=== PATIENT | female | born 1960 | race Hispanic/Latino ===

== ENCOUNTER 2018-06-15 11:29 | Inpatient (IN) | payer BC ==
[2018-06-15] MEDS ORDERED: Morphine 2 mg/ml ISec IVP ONE ×2 (13:35→15:15)
[2018-06-15 14:16] LABS: INR 1.13; PARTIAL THROMBOPLASTIN TIME 25.8 Seconds (25.1-36.5)
[2018-06-15 14:17] LABS: BASO # 0.02 K/mm3 (0.0-2.0); BASO % 0.2 % (0.0-3.0); GRAN # 7.15 (1.4-6.5); GRAN % 85.1 % (50.0-68.0); HEMOGLOBIN 11.8 g/dL (12.0-16.0); LYMPH # 0.7 (1.2-3.4); LYMPH % 8.8 % (22.0-35.0); MEAN CELL VOLUME 87.8 fl (80.0-105.0); MEAN CORPUSCULAR HEMOGLOBIN 28.9 pg (25.0-35.0); MEAN CORPUSCULAR HGB CONC 32.9 g/dl (31.0-37.0); MEAN PLATELET VOLUME 8.8 fl (7.0-11.0); MONO # 0.5 (0.1-0.6); MONO % 5.9 % (1.0-6.0); RBC 4.09 10^6/uL (3.5-6.1); RED CELL DISTRIBUTION WIDTH 13.2 % (11.5-14.5); WHITE BLOOD COUNT 8.4 10^3/uL (4.5-11.0)
[2018-06-15 14:42] VITALS: BMI 21.9
[2018-06-15 14:42] LABS: BLOOD UREA NITROGEN 10 mg/dL (7-21); GFR NON-AFRICAN AMERICAN > 60
[2018-06-15 14:43] LABS: ALB/GLOB RATIO 1.3 (1.1-1.8); ALBUMIN 4.3 g/dL (3.0-4.8); ALT/SGPT 25 U/L (7-56); AST/SGOT 36 U/L (14-36); CALCIUM 9.4 mg/dL (8.4-10.5)
[2018-06-15] MEDS ORDERED: Sodium Chloride 0.9% 1,000 ML IV STA (16:48)
[2018-06-15] MEDS ORDERED: Iohexol 350 MG/100 ML VIAL ONE (17:03)
--- NOTE | 2018-06-15 17:41 | CARD ---
APPROVED REPORT Date of service: 06/15/2018 EKG Measurement Heart [id number] <Conclusion> Normal sinus rhythm with sinus arrhythmia Normal ECG
[2018-06-15] MEDS ORDERED: Potassium Chloride 20 mEq/15 ml LIQ UD PO ONE (18:00)
[2018-06-15] MEDS ORDERED: Morphine 2 mg/ml ISec IVP STA (18:59)
[2018-06-15] MEDS ORDERED: POTASSIUM CHLORIDE 20 MEQ IVPB ONE (19:00)
--- NOTE | 2018-06-15 19:09 | ED PDOC ---
Physical Exam Vital Signs Pulse Resp BP Pulse Ox 06/15/18 18:47 65 18 124/79 99 06/15/18 16:12 66 18 129/64 97 06/15/18 14:12 63 18 122/60 99 Medical Decision Making ED Course and Treatment: 06/15/18 19:[address] Rocha with patient pending CT a/p results and reevaluation. Patient's PCP is Dr. Norman. 06/15/18 20:21 CT results reveals worrisome for distal obstructing lesion within the sigmoid colon as well as hemangioma within the liver. Patient updated on details and discussion with Dr. Vergara(PCP) regarding CT findings requiring admission. He requests Dr. Boston(GI) & Dr. Perera(surgery) on consult. - Lab Interpretations Lab Results: 06/15/18 12:30 06/15/18 12:30 Lab Results 06/15/18 12:30: PT 13.0 H, INR 1.13, APTT 25.8 06/15/18 12:30: Sodium 141, Potassium 3.1 L, Chloride 103, Carbon Dioxide 27, Anion Gap 14, BUN 10, Creatinine 0.6 L, Est GFR ( Amer) > 60, Est GFR (Non-Af Amer) > 60, Random Glucose 115 H, Calcium 9.4, Total Bilirubin 0.4, AST 36, ALT 25, Alkaline Phosphatase 188 H, Total Protein 7.7, Albumin 4.3, Globulin 3.4, Albumin/Globulin Ratio 1.3 06/15/18 12:30: WBC 8.4, RBC 4.09, Hgb 11.8 L, Hct 35.9 L, MCV 87.8, MCH 28.9, MCHC 32.9, RDW 13.2, Plt Count 389, MPV 8.8, Gran % 85.1 H, Lymph % (Auto) 8.8 L , [place] % (Auto) 5.9, Eos % (Auto) 0.0 L, Baso % (Auto) 0.2, Gran # 7.15 H, Lymph # (Auto) 0.7 L, [place] # (Auto) 0.5, Eos # (Auto) 0.0, Baso # (Auto) 0.02 - RAD Interpretation Radiology Orders: 06/15/18 15:40 ABD & PELVIS IV CONTRAST ONLY [CT] Stat - Medication Orders Current Medication Orders: Discontinued Medications Sodium Chloride (Sodium Chloride 0.9%) 1,000 mls @ 999 mls/hr IV .Q1H1M STA Stop: 06/15/18 17:48 Last Admin: 06/15/18 16:53 Dose: 999 mls/hr eMAR Start Stop Document 06/15/18 16:53 BB (Rec[facility] 06/15/18 16:53 [id number] Intravenous Solution Start Date 06/15/18 Start Time 16:53 End Date 06/15/18 End time 17:53 Total Infusion Time 60 Morphine Sulfate (Morphine) 2 mg IVP STAT ONE Stop: 06/15/18 15:16 Last Admin: 06/15/18 15:21 Dose: 2 mg MAR Pain Assessment Document 06/15/18 15:21 BB (Rec: 06/15/18 15:21 [id number] Pain Reassessment Is this a pain reassessment? No Sleep Is patient sleeping during reassessment? No Presence of Pain Presence of Pain Yes Pain Scale Used Protocol: PSCALES Pain Scale Used Numeric Location Pain Location Body Site Abdomen Description Description Constant Intensity of Pain at present 10 Pain Behavior Crying Guarding IVP Administration Document 06/15/18 15:21 BB (Rec: 06/15/18 15:21 [id number] Charges for Administration # of IVP Administrations 1 Morphine Sulfate (Morphine) 2 mg IVP STAT STA Stop: 06/15/18 19:00 Disposition/Present on Arrival - Present on Arrival Any Indicators Present on Arrival: No History of DVT/PE: No History of Uncontrolled Diabetes: No Urinary Catheter: No History of Decub. Ulcer: No History Surgical Site Infection Following: None - Disposition Have Diagnosis and Disposition been Completed?: Yes Diagnosis: Abdominal pain Disposition: HOSPITALIZED Disposition Time: 21:40 Patient Plan: Admission Condition: GUARDED
--- NOTE | 2018-06-15 19:11 | CT ---
Date of service: 06/15/2018 PROCEDURE: CT Abdomen and Pelvis with contrast HISTORY: diffuse abd pain - r/o obstruction COMPARISON: None available. TECHNIQUE: CT scan of the abdomen and pelvis was performed after administration of intravenous contrast. Oral contrast was not administered. Coronal and sagittal reformatted images were obtained. Contrast dose: 97 mL Omnipaque 350 Radiation dose: Total exam DLP = 210.69 mGy-cm. This CT exam was performed using one or more of the following dose reduction techniques: Automated exposure control, adjustment of the mA and/or kV according to patient size, and/or use of iterative reconstruction technique. FINDINGS: LOWER THORAX: There is subsegmental atelectasis in the right lung base. The visualized left lung is clear. LIVER: Normal in size with homogeneous enhancement. There is mild intrahepatic biliary ductal dilatation. There is a 4.0 x 4.5 cm heterogeneously enhancing mass in the posterior right hepatic lobe. GALLBLADDER AND BILE DUCTS: Well distended. No calcified gallstones, wall thickening or pericholecystic fluid. PANCREAS: Normal in size with homogeneous enhancement. No gross lesion or ductal dilatation. SPLEEN: Normal in size and appearance. ADRENALS: No discrete nodule. KIDNEYS AND URETERS: Normal in size with homogeneous enhancement. No hydronephrosis. No solid mass. There is a 4.9 x 4.9 cm simple cyst in the upper pole of the left kidney. Few scattered tiny low-attenuation lesions in the kidneys are too small to characterize by CT criteria. VASCULATURE: No aortic aneurysm. BOWEL: Evaluation of the bowel is limited in the absence of oral contrast. The small bowel loops are normal in caliber. There is severe diffuse dilatation of fluid-filled colon with mild circumferential mural thickening in the distal descending and sigmoid colon. There is also circumferential curvilinear air in the cecum and proximal ascending colon and there are multiple air-fluid levels. There is an apparent moderate segmental mural thickening with corresponding enhancement in the distal sigmoid colon. APPENDIX: Not visualized. PERITONEUM: No free fluid. No free air. LYMPH NODES: No enlarged lymph nodes. BLADDER: Well distended and normal in appearance. REPRODUCTIVE: The uterus is normal in size. BONES: No acute fracture. Within normal limits for the patient's age. OTHER FINDINGS: None. IMPRESSION: Severe diffuse dilatation of the fluid-filled colon with multiple air-fluid levels. Also noted is curvilinear peripheral luminal air in the cecum and proximal ascending colon, the possibility of pneumatosis coli is not entirely excluded given severe dilatation of the cecum and ascending colon. Apparent moderate segmental circumferential mural thickening in the distal descending and sigmoid colon, nonspecific however segmental acute infectious/inflammatory colitis is also a consideration. Apparent moderate circumferential mural thickening with enhancement in the distal sigmoid colon is concerning for an obstructing neoplasm. Endoscopic correlation is advised. 4.0 x 4.5 cm heterogeneously enhancing mass in the right posterior hepatic lobe, the differential considerations include benign and malignant lesion however concerning for metastasis given distal sigmoid colon masslike lesion. CT scan/MRI of the abdomen with liver protocol without and with intravenous contrast would be helpful for further characterization.
[2018-06-15] MEDS ORDERED: Sodium Chloride 0.9% 1,000 ML IV SCH (22:12)
[2018-06-15] MEDS ORDERED: Potassium Chloride 20 mEq/15 ml LIQ UD ONE (22:24)
[2018-06-15] MEDS ORDERED: Potassium Chloride 40 mEq/30 ml LIQ UD PO STA (22:25)
--- NOTE | 2018-06-15 22:30 | CP.PCM.CON ---
History of Present Illness - History of Present Illness History of Present Illness: Surgery: Dr. Perera CC: LBO HPI: 58F w. no significant pmh presents to ED w. abd pain and nausea x 1 week. Pt states that the pain has been intermittent and diffuse. She reports decreased appetite and when she attempts to eat, this is typically followed by an episode of emesis. She states that yesterday she had 1 episode of diarrhea. This is the only BM she has had this week. She states that she is not passing flatus. She states that she has never had a colonoscopy. CT done in ED showed LBO with severe dilation of colon likely 2/2 to obstructing neoplasm of distal sigmoid. PMH: none PSH: Meds: Ambien, xanax ALL: shell fish Social: +ETOH, no tobacco/drugs Fhx: Father- Lung CA, Brother- Lung CA, Mother- Breast CA Review of Systems - Review of Systems All systems: reviewed and no additional remarkable complaints except (HPI) Past Patient History - Past Social History Smoking Status: Never Smoked - CARDIAC Hx Cardiac Disorders: No - PULMONARY Hx Respiratory Disorders: No - NEUROLOGICAL Hx Neurological Disorder: No - HEENT Hx HEENT Problems: No - RENAL Hx Chronic Kidney Disease: No - ENDOCRINE/METABOLIC Hx Endocrine Disorders: No - HEMATOLOGICAL/ONCOLOGICAL Hx Blood Disorders: No - INTEGUMENTARY Hx Dermatological Problems: No - MUSCULOSKELETAL/RHEUMATOLOGICAL Hx Musculoskeletal Disorders: No - GASTROINTESTINAL Hx Gastrointestinal Disorders: No - GENITOURINARY/GYNECOLOGICAL Hx Genitourinary Disorders: No - PSYCHIATRIC Hx Psychophysiologic Disorder: No Hx Substance Use: No - SURGICAL HISTORY Hx Section: Yes (x1) - ANESTHESIA Hx Anesthesia: Yes Hx Anesthesia Reactions: No Hx Malignant Hyperthermia: No Meds Allergies/Adverse Reactions: Allergies Allergy/AdvReac Type Severity Reaction Status Date / Time No Known Allergies Allergy Verified 06/15/18 14:42 Physical Exam - Constitutional Appears: Non-toxic, No Acute Distress - Head Exam Head Exam: ATRAUMATIC, NORMOCEPHALIC - Eye Exam Eye Exam: EOMI - ENT Exam ENT Exam: Mucous Membranes Moist - Neck Exam Neck exam: Positive for: Full Rom - Respiratory Exam Respiratory Exam: NORMAL BREATHING PATTERN. absent: Accessory Muscle Use, Respiratory Distress - GI/Abdominal Exam GI & Abdominal Exam: Distended (significant), Soft. absent: Firm, Guarding, Rebound, Rigid, Tenderness - Extremities Exam Extremities exam: Negative for: calf tenderness, pedal edema - Neurological Exam Neurological exam: Alert, Oriented x3 - Psychiatric Exam Psychiatric exam: Normal Affect, Normal Mood - Skin Skin Exam: Dry, Normal Color, Warm Results - Vital Signs Recent Vital Signs: Last Vital Signs Temp Pulse 65 06/15/18 18:47 Resp 18 06/15/18 18:47 BP 124/79 06/15/18 18:47 Pulse Ox 99 06/15/18 18:47 - Labs Result Diagrams: 06/15/18 12:30 06/15/18 12:30 Labs: Laboratory Results - last 24 hr 06/15/18 06/15/18 06/15/18 12:30 12:30 12:30 WBC 8.4 RBC 4.09 Hgb 11.8 L Hct 35.9 L MCV 87.8 MCH 28.9 MCHC 32.9 RDW 13.2 Plt Count 389 MPV 8.8 Gran % 85.1 H Lymph % (Auto) 8.8 L [place] % (Auto) 5.9 Eos % (Auto) 0.0 L Baso % (Auto) 0.2 Gran # 7.15 H Lymph # (Auto) 0.7 L [place] # (Auto) 0.5 Eos # (Auto) 0.0 Baso # (Auto) 0.02 PT 13.0 H INR 1.13 APTT 25.8 Sodium 141 Potassium 3.1 L Chloride 103 Carbon Dioxide 27 Anion Gap 14 BUN 10 Creatinine 0.6 L Est GFR ( Amer) > 60 Est GFR (Non-Af Amer) > 60 Random Glucose 115 H Calcium 9.4 Total Bilirubin 0.4 AST 36 ALT 25 Alkaline Phosphatase 188 H Total Protein 7.7 Albumin 4.3 Globulin 3.4 Albumin/Globulin Ratio 1.3 - Imaging and Cardiology CT scan - abdomen Status: Image reviewed by me, Report reviewed by me Assessment & Plan - Assessment and Plan (Free Text) Assessment: 58F w. LBO 2/2 distal sigmoid lesion -OR in AM for transverse loop colostomy, consent in chart, risks benefits discussed w. pt -NPO at [facility] -IVF -CXR -Type and screen -pain meds / anti-emetics prn -d/w attending Zemaitis PGY4
[2018-06-16] MEDS ORDERED: Midazolam 2 MG/2 ML VIAL ONE (07:33)
[2018-06-16] MEDS ORDERED: Propofol 10 mg/ml Inj (20 ML) ONE (07:33)
[2018-06-16] MEDS ORDERED: Lidocaine 1% Inj (20ml) ONE (07:35)
[2018-06-16] MEDS ORDERED: Rocuronium 10 mg/ml (5 ml) ONE (07:36)
[2018-06-16] MEDS ORDERED: Succinylcholine 200 mg/10 ml Inj IV ONE (07:36)
[2018-06-16] MEDS ORDERED: Bupivacaine 0.5% 50 ML IJ ONE (07:46)
[2018-06-16 08:15] LABS: BLOOD UREA NITROGEN 5 mg/dL (7-21); CALCIUM 8.6 mg/dL (8.4-10.5); GFR NON-AFRICAN AMERICAN > 60
[2018-06-16] MEDS ORDERED: Desflurane Inhalation Anesthetic Liq (240 ml) ONE (08:39)
[2018-06-16] MEDS ORDERED: metroNIDAZOLE IV 500 mg/100 ml 500 MG/100 ML BAG ONE (08:50)
[2018-06-16] MEDS ORDERED: CeFAZolin 1 gm in NS 100ml IVPB ONE (08:51)
[2018-06-16] MEDS ORDERED: Bupivacaine 0.5% Inj(30mL) IJ ONE (08:52)
--- NOTE | 2018-06-16 08:57 | RAD ---
Date of service: 06/15/2018 HISTORY: pre-op COMPARISON: No prior. FINDINGS: LUNGS: The lungs are well inflated and clear. PLEURA: No pleural effusions or pneumothorax. CARDIOVASCULAR: The heart is normal in size. No aortic atherosclerotic calcification present. OSSEOUS STRUCTURES: Within normal limits for the patient's age. VISUALIZED UPPER ABDOMEN: Normal. OTHER FINDINGS: None. IMPRESSION: No active pulmonary disease.
[2018-06-16] MEDS ORDERED: Glycopyrrolate 0.2 mg/ml (2ml vial) ONE (09:56)
--- NOTE | 2018-06-16 10:09 | PCM.SURG1 ---
Surgeon's Initial Post Op Note - Surgeon's Notes Surgeon: Trever Blue Split Trimmer: Ciro PGY4, Virgil PGY3 Type of Anesthesia: General Endo, Local Pre-Operative Diagnosis: LBO Operative Findings: Dilated loops of bowel/colon, sanguinous ascites Post-Operative Diagnosis: same Operation Performed: Diagnostic laparoscopy converted to open transverse loop colostomy Specimen/Specimens Removed: ascites Estimated Blood Loss: EBL {In ML}: 25 Blood Products Given: N/A Drains Used: Ostomy Device Post-Op Condition: Good Date of Surgery/Procedure: 06/16/18 Time of Surgery/Procedure: 10:10
[2018-06-16] MEDS ORDERED: HYDROmorphone 0.5 mg/0.5 ml ISec IVP PRN (10:12)
[2018-06-16] MEDS ORDERED: Lactated Ringer's 1,000 ML IV SCH (10:15)
[2018-06-16] MEDS ORDERED: Morphine 4 mg/ml ISec IVP PRN (10:15)
[2018-06-16] MEDS: HYDROmorphone 0.5 mg/0.5 ml ISec IVP PRN ×3 (10:16→10:52)
[2018-06-16] MEDS ORDERED: HYDROmorphone 0.5 mg/0.5 ml ISec ONE ×3 (10:18→10:55)
[2018-06-16] MEDS: Piperacillin/Tazobact 3.375 gm 100 ML IVPB SCH ×2 (18:09→21:52)
--- NOTE | 2018-06-17 01:28 | CON ---
DATE: 06/16/2018 HISTORY OF PRESENT ILLNESS: This is a 58-year-old patient with no significant past medical history, admitted with abdominal pain,nausea for over a week, and symptoms were essentially intermittent and became pronounced and constant. Had an episode of loose bowel movements. The patient had CT, which showed significant dilation of the colon on the right side with cecal distention and probable pneumatosis in the wall area secondary to an obstruction of the sigmoid colon lesion. The patient underwent transverse colostomy, was seen on the floor, appeared much more comfortable on clear liquid diet. OTHER PAST MEDICAL HISTORY: Significant for . ALLERGIES: SHELLFISH. FAMILY HISTORY: The patient's father had lung cancer, mother with breast cancer, and brother also had lung cancer. SOCIAL HISTORY: Social alcohol drinking. No smoking. REVIEW OF SYSTEMS: Positive as above. All other systems reviewed, negative. PHYSICAL EXAMINATION: GENERAL: The patient is lying on the bed, not in acute distress. VITAL SIGNS: Temperature is 97.2, pulse 96, blood pressure 146/80, respirations 20, O2 saturation 90%. HEENT: Atraumatic, anicteric. NECK: Supple. HEART: S1 and S2 heard. LUNGS: Bilateral air entry present. ABDOMEN: Soft. There is transverse colostomy present. There is air in the colostomy bag . EXTREMITIES: No cyanosis. No clubbing. LABORATORY DATA: Hemoglobin 11.8, hematocrit 35.9, WBC is 8.4, platelets 389. Chemistry is essentially unremarkable except potassium was 3.1, then came down to 2.6, again 3.1. The CT scan was reviewed circumferential mural thickening with enhancement noticed in the distal sigmoid colon and also, there was a 4-cm lesion noticed in the right posterior hepatic lobe. IMPRESSION: A 58-year-old female admitted with abdominal pain, nausea, vomiting. The patient was found to have chronic obstruction secondary to the sigmoid lesion, ulcerated mass lesion. The patient was also found to have a large hepatic lesion. RECOMMENDATIONS: We will discuss with the surgical team regarding the timing of flexible sigmoidoscopy and to further evaluate the sigmoid colon lesion. the patient's was also at bedside who wants to have the procedure done sooner. Since the patient had significant distention and , we will consider preparing the patient with a flexible sigmoidoscopy after enemas and continue the clear liquid diet. The patient will be scheduled for a flexible sigmoidoscopy on Wednesday. Sandi Boston MD
[2018-06-17 06:49] LABS: BASO # 0.02 K/mm3 (0.0-2.0); BASO % 0.2 % (0.0-3.0); EOS # 0.1 (0.0-0.7); EOS % 0.7 % (1.5-5.0); GRAN # 7.42 (1.4-6.5); GRAN % 75.7 % (50.0-68.0); HEMOGLOBIN 10.7 g/dL (12.0-16.0); LYMPH # 1.4 (1.2-3.4); LYMPH % 13.8 % (22.0-35.0); MEAN CELL VOLUME 88.1 fl (80.0-105.0); MEAN CORPUSCULAR HEMOGLOBIN 28.3 pg (25.0-35.0); MEAN CORPUSCULAR HGB CONC 32.1 g/dl (31.0-37.0); MONO # 0.9 (0.1-0.6); MONO % 9.6 % (1.0-6.0); RBC 3.78 10^6/uL (3.5-6.1); RED CELL DISTRIBUTION WIDTH 13.8 % (11.5-14.5); WHITE BLOOD COUNT 9.8 10^3/uL (4.5-11.0)
[2018-06-17 07:15] LABS: BLOOD UREA NITROGEN 3 mg/dL (7-21); CALCIUM 8.3 mg/dL (8.4-10.5); GFR NON-AFRICAN AMERICAN > 60
[2018-06-17 08:07] LABS: TOTAL IRON BINDING CAPACITY 251 ug/dL (265-497)
[2018-06-17] MEDS: Enoxaparin 40 mg Syringe SC SCH ×2 (09:06→09:11)
[2018-06-17] MEDS ORDERED: Sodium Chloride 0.9% 1,000 ML IV SCH (09:22)
--- NOTE | 2018-06-17 09:25 | CP.PCM.PN ---
Subjective - Date & Time of Evaluation Date of Evaluation: 06/17/18 Time of Evaluation: 09:24 - Subjective Subjective: Surgery: Dr. Perera Pt seen and examined. Resting comfortably in bed. Pt has no complaints. Tolerated CLD yesterday. Pain controlled. Ambulating. Voiding. +Stool out put from stoma. Objective - Vital Signs/Intake and Output Vital Signs (last 24 hours): Temp Pulse Resp BP Pulse Ox 99.3 F 71 20 116/73 98 06/17/18 08:27 06/17/18 08:27 06/17/18 08:27 06/17/18 08:27 06/17/18 08:27 Intake and Output: 06/17/18 06/17/18 06:59 18:59 Intake Total 1140 Output Total 300 Balance 840 - Medications Medications: Current Medications Acetaminophen (Tylenol 325mg Tab) 650 mg PO Q6H PRN PRN Reason: Pain, Mild (1-3) Alprazolam (Xanax) 0.25 mg PO Q6H PRN PRN Reason: Anxiety Stop: 06/23/18 20:21 Docusate Sodium (Colace) 100 mg PO BID [facility] Last Admin: 06/17/18 09:12 Dose: Not Given Enoxaparin Sodium (Lovenox) 40 mg SC DAILY [facility]; Protocol Last Admin: 06/17/18 09:11 Dose: Not Given Hydromorphone HCl (Dilaudid) 0.5 mg IVP Q4H PRN PRN Reason: Pain, moderate (4-7) Sodium Chloride (Sodium Chloride 0.9%) 1,000 mls @ 50 mls/hr IV .Q20H [facility] Ketorolac Tromethamine (Toradol) 15 mg IVP Q6H PRN PRN Reason: Pain, moderate (4-7) Last Admin: 06/17/18 06:28 Dose: 15 mg Ondansetron HCl (Zofran Inj) 4 mg IVP Q4H PRN PRN Reason: Nausea/Vomiting Ondansetron HCl (Zofran Inj) 4 mg IVP ONCE PRN PRN Reason: Nausea/Vomiting Zolpidem Tartrate (Ambien) 5 mg PO HS PRN PRN Reason: Insomnia Last Admin: 06/16/18 21:52 Dose: 5 mg - Labs Labs: 06/17/18 06:20 06/17/18 06:20 PT 13.0 SECONDS (9.4-12.5) H 06/15/18 12:30 INR 1.13 06/15/18 12:30 APTT 25.8 Seconds (25.1-36.5) 06/15/18 12:30 - Constitutional Appears: Non-toxic, No Acute Distress - Head Exam Head Exam: ATRAUMATIC, NORMOCEPHALIC - Eye Exam Eye Exam: EOMI - ENT Exam ENT Exam: Mucous Membranes Moist - Neck Exam Neck Exam: Full ROM - Respiratory Exam Respiratory Exam: NORMAL BREATHING PATTERN. absent: Accessory Muscle Use, Respiratory Distress - GI/Abdominal Exam GI & Abdominal Exam: Distended, Soft. absent: Firm, Guarding, Rigid, Tenderness, Rebound Additional comments: stoma pink and patent w. soft loose stool - Extremities Exam Extremities Exam: absent: Calf Tenderness, Pedal Edema - Neurological Exam Neurological Exam: Alert, Oriented x3 - Psychiatric Exam Psychiatric exam: Normal Affect, Normal Mood Assessment and Plan - Assessment and Plan (Free Text) Assessment: 58F w. LBO s/p dx laparascopy converted to open transverse loop colostomy, POD#1 -Keep CLD per GI, plan for sigmoidoscopy Wednesday -Decrease IVF rate -monitor stoma output -Encourage OOB/ambulation/IS use -dvt ppx -d/w attending Ciro PGY4
[2018-06-17 09:34] LABS: IRON 10 ug/dL (45-180)
[2018-06-17 09:35] LABS: % IRON SATURATION 4 % (20-55)
[2018-06-17] MEDS ORDERED: Enoxaparin 40 mg Syringe SC SCH (10:00)
--- NOTE | 2018-06-17 10:48 | PN ---
DATE: 06/16/2018 SUBJECTIVE: The patient was seen this morning in the recovery room immediately postop from emergency colonic diversion transverse colon loop diverting colostomy performed by Dr. Osmel Perera. The patient is groggy, lethargic. I spoke with her in the waiting room. Later this evening I came back for a long talk with the patient and her at the bedside. The patient is awake, alert, clear, doing amazing well post op and starting to pass gas through the colostomy bag. Lungs showed good aeration. Heart was regular, not tachycardic. Extremities were thin with no edema. I sat and talked with the patient regarding the CT scan findings and her symptoms leading up to this. Symptoms lasted for a few weeks with worsening abdominal pain resulting in two days of severe bloating and distention, signs of obstruction and no bowel movement of late, at least in the last day or two. I explained the findings on CAT scan, the possibility of a malignancy in the sigmoid colon and a metastatic lesion in the liver, although no one would say this to her with certainty until a biopsy is proven. The patient is optimistic that may be diverticular inflammation or scarring causing the obstruction, but it is realistic that maybe the prognosis is more concerning. Case was discussed with Dr. Perera as well as with Dr. Boston. Biopsy could not be taken at the time of surgery because of accessibility to the colon lesion and the liver lesion as well. The patient is scheduled for a flexible sigmoidoscopy on Wednesday at [facility] for biopsy and to obtain a tissue diagnosis. Dr. Boston met with me and the family as well this evening. Because of the large amount of dilated colon, it will be best to wait until Wednesday for sigmoidoscopy until that it would be our plan, IV fluids will be supplemented overnight as well as following her hypokalemia on admission. Brian Ivey MD MTDAudrey
--- NOTE | 2018-06-17 15:39 | CP.PCM.PN ---
Subjective - Date & Time of Evaluation Date of Evaluation: 06/17/18 Time of Evaluation: 11:30 - Subjective Subjective: S&E at bedside earlier today, chart reviewed, no acute overnight events reported. POD # 1, s/p ex lap with colectomy w/ tranverse loop colostomy. Colostomy draining liquid brown stool, some abdominal discomfort but no acute distress, controlled, on analgesia prn. No c/o N/V or overt GI bleeding. No fever or chills. Objective - Vital Signs/Intake and Output Vital Signs (last 24 hours): Temp Pulse Resp BP Pulse Ox 99.3 F 71 20 116/73 98 06/17/18 08:27 06/17/18 08:27 06/17/18 08:27 06/17/18 08:27 06/17/18 08:27 Intake and Output: 06/17/18 06/17/18 06:59 18:59 Intake Total 1140 Output Total 300 Balance 840 - Medications Medications: Current Medications Acetaminophen (Tylenol 325mg Tab) 650 mg PO Q6H PRN PRN Reason: Pain, Mild (1-3) Alprazolam (Xanax) 0.25 mg PO Q6H PRN PRN Reason: Anxiety Stop: 06/23/18 20:21 Docusate Sodium (Colace) 100 mg PO BID [facility] Last Admin: 06/17/18 09:12 Dose: Not Given Enoxaparin Sodium (Lovenox) 40 mg SC DAILY [facility]; Protocol Last Admin: 06/17/18 09:11 Dose: Not Given Hydromorphone HCl (Dilaudid) 0.5 mg IVP Q4H PRN PRN Reason: Pain, moderate (4-7) Sodium Chloride (Sodium Chloride 0.9%) 1,000 mls @ 50 mls/hr IV .Q20H [facility] Ketorolac Tromethamine (Toradol) 15 mg IVP Q6H PRN PRN Reason: Pain, moderate (4-7) Last Admin: 06/17/18 06:28 Dose: 15 mg Ondansetron HCl (Zofran Inj) 4 mg IVP Q4H PRN PRN Reason: Nausea/Vomiting Ondansetron HCl (Zofran Inj) 4 mg IVP ONCE PRN PRN Reason: Nausea/Vomiting Zolpidem Tartrate (Ambien) 5 mg PO HS PRN PRN Reason: Insomnia Last Admin: 06/16/18 21:52 Dose: 5 mg - Labs Labs: 06/17/18 06:20 06/17/18 06:20 PT 13.0 SECONDS (9.4-12.5) H 06/15/18 12:30 INR 1.13 06/15/18 12:30 APTT 25.8 Seconds (25.1-36.5) 06/15/18 12:30 - Constitutional Appears: No Acute Distress - Eye Exam Eye Exam: Normal appearance. absent: Scleral icterus - ENT Exam ENT Exam: Mucous Membranes Moist - Neck Exam Neck Exam: Normal Inspection - Respiratory Exam Respiratory Exam: Clear to Ausculation Bilateral, NORMAL BREATHING PATTERN. absent: Respiratory Distress - Cardiovascular Exam Cardiovascular Exam: +S1, +S2 - GI/Abdominal Exam GI & Abdominal Exam: Distended, Soft. absent: Guarding, Rebound Additional comments: colostomy with liquid brown stool and gas (bag inflated)no bleeding noted. stoma pink - Extremities Exam Extremities Exam: Normal Capillary Refill. absent: Calf Tenderness, Pedal Edema - Neurological Exam Neurological Exam: Alert, Awake, Oriented x3 - Skin Skin Exam: Dry, Warm Assessment and Plan - Assessment and Plan (Free Text) Assessment: ASSESSMENT: Colonic Obstruction/Sigmoid Lesion s/p Exp lap, with colectomy with transverse loop colostomy Right hepatic lobe mass, noted on ct scan A&P PLAN: monitor H/H and for overt GIB recommend continue clear liquids, tentative plan flesxsig on Wednesday, discuss w/ pt. continue GI prophylaxsis on DVT prophylaxis, pt refusing, pt witness OOB surgical FU FU cytology Seen and discussed w/ Dr. Mitchell covering Dr. Boston.
--- NOTE | 2018-06-17 17:37 | CON ---
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 The patient said she was doing fine. She works as an executive at the [employer], and she says only for the last couple of weeks, she has been having increasing abdominal pains and difficulty moving her bowels. She finally came in for acute abdominal pain where she was found to be completely obstructed, most likely from the sigmoid colon cancer. PHYSICAL EXAMINATION: SKIN: No petechia. No bruises. HEENT: Anicteric nodes. Nonpalpable masses in the cervical, supraclavicular, or inguinal regions. LUNGS: Clear at present. The patient is able to lie flat in bed. HEART: S1, S2. ABDOMEN: The patient is just ____ with a diverting colostomy. EXTREMITIES: No edema. CENTRAL NERVOUS EXAM: No focal finding. I told the patient that she will be getting a colonoscopy on Wednesday to evaluate the cancer, and after that, we will be able to make decisions what to do, but that will take at least two or three weeks postoperatively. I met the downstairs in the lobby as I was leaving the hospital and he caught up with me and I told him that he knew that I had just seen her. She must have called him and I explained that it will take at least two weeks before we have all the results and she is also postoperative, to able to decide on any kind of therapy, whether it be chemo or radiotherapy, PET scan, etc., that will be done as an outpatient and I will be keeping and he agreed. Ed Aguirre MD
--- NOTE | 2018-06-17 20:13 | HP ---
DATE OF EXAM: 06/17/2018 HISTORY OF PRESENT ILLNESS: The patient is a 58-year-old female who presented to the emergency room complaining of abdominal pain, nausea over the past week. The pain had increased in severity. She was unable to eat, attempt of meals will be followed by episodes of emesis. She therefore presented to the emergency room where she was evaluated. CAT scan showed large bowel obstruction with an obstructing neoplasm at the distal sigmoid: The patient is admitted. She has no other past medical history. She is status post . MEDICATIONS: Include Ambien and Xanax on a p.r.n. basis. ALLERGIES: SHE IS KNOWN TO BE ALLERGIC TO SHELLFISH. SOCIAL HISTORY: She drinks alcohol socially. She is a nonsmoker. REVIEW OF SYSTEMS: Otherwise unremarkable. PHYSICAL EXAMINATION: VITAL SIGNS: Her blood pressure is 124/79, heart rate is 65 beats per minute. HEENT: Head, eyes, ears, nose and throat is negative. NECK: Supple with no lymphadenopathy. No goiter. CARDIOPULMONARY: Regular. No murmurs are appreciated. LUNGS: Clear to auscultation and percussion. ABDOMEN: Distended and tense. There are decreased bowel sounds. EXTREMITIES: Free of cyanosis, clubbing or edema. NEUROLOGICAL: She is awake, alert and oriented with no focal neurological signs. LABORATORY DATA: White blood cell count is 8.4, hemoglobin and hematocrit is 11.8 and 35.9 respectively. Sodium is 141, potassium 3.1, blood urea nitrogen is 10, creatinine 0.6, glucose is 115. PLAN: The patient is admitted. She is evaluated by Dr. Perera, general surgeon. He plans surgery immediately to relieve this bowel obstruction. Also of note on CAT scan, there was a lesion in the liver. Hardy Ivey MD BRAD
--- NOTE | 2018-06-18 09:08 | CP.PCM.PN ---
Subjective - Date & Time of Evaluation Date of Evaluation: 06/18/18 Time of Evaluation: 07:00 - Subjective Subjective: Surgery Progress note- Dr. Perera Patient seen and examined at bedside. No new complaints. Feeling better than yesterday. Tolerating regular diet. Ostomy air output, no stool yet. + OOB and ambulating. Denies fevers, chills, chest pain, shortness of breath, nausea, vomiting, diarrhea Objective - Vital Signs/Intake and Output Vital Signs (last 24 hours): Temp Pulse Resp BP Pulse Ox 98.4 F 78 18 126/74 95 06/18/18 06:00 06/18/18 06:00 06/18/18 06:00 06/18/18 06:00 06/18/18 06:00 - Medications Medications: Current Medications Acetaminophen (Tylenol 325mg Tab) 650 mg PO Q6H PRN PRN Reason: Pain, Mild (1-3) Alprazolam (Xanax) 0.25 mg PO Q6H PRN PRN Reason: Anxiety Stop: 06/23/18 20:21 Docusate Sodium (Colace) 100 mg PO BID [facility] Last Admin: 06/17/18 17:21 Dose: Not Given Enoxaparin Sodium (Lovenox) 40 mg SC DAILY [facility]; Protocol Last Admin: 06/17/18 09:11 Dose: Not Given Hydromorphone HCl (Dilaudid) 0.5 mg IVP Q4H PRN PRN Reason: Pain, moderate (4-7) Last Admin: 06/18/18 03:58 Dose: 0.5 mg Sodium Chloride (Sodium Chloride 0.9%) 1,000 mls @ 50 mls/hr IV .Q20H [facility] Last Admin: 06/17/18 17:21 Dose: 50 mls/hr Ketorolac Tromethamine (Toradol) 15 mg IVP Q6H PRN PRN Reason: Pain, moderate (4-7) Last Admin: 06/17/18 06:28 Dose: 15 mg Ondansetron HCl (Zofran Inj) 4 mg IVP Q4H PRN PRN Reason: Nausea/Vomiting Ondansetron HCl (Zofran Inj) 4 mg IVP ONCE PRN PRN Reason: Nausea/Vomiting Zolpidem Tartrate (Ambien) 5 mg PO HS PRN PRN Reason: Insomnia Last Admin: 06/16/18 21:52 Dose: 5 mg - Labs Labs: 06/17/18 06:20 06/17/18 06:20 PT 13.0 SECONDS (9.4-12.5) H 06/15/18 12:30 INR 1.13 06/15/18 12:30 APTT 25.8 Seconds (25.1-36.5) 06/15/18 12:30 - Constitutional Appears: Non-toxic, No Acute Distress - Head Exam Head Exam: ATRAUMATIC - Eye Exam Eye Exam: EOMI. absent: Scleral icterus - ENT Exam ENT Exam: Mucous Membranes Moist - Respiratory Exam Respiratory Exam: NORMAL BREATHING PATTERN. absent: Accessory Muscle Use, Respiratory Distress - Cardiovascular Exam Cardiovascular Exam: +S1, +S2. absent: Bradycardia, Tachycardia - GI/Abdominal Exam GI & Abdominal Exam: Soft. absent: Distended, Firm, Guarding, Rigid, Tenderness Additional comments: Transverse loop colostomy pink, patent w/ air, output - Extremities Exam Extremities Exam: absent: Calf Tenderness - Neurological Exam Neurological Exam: Alert, Awake, Oriented x3 - Psychiatric Exam Psychiatric exam: Normal Affect - Skin Skin Exam: Intact, Warm Assessment and Plan - Assessment and Plan (Free Text) Assessment: 58F s/p transverse loop colostomy POD #2 for LBO Plan: - analgesia PRN - diet as tolerated - monitor ostomy output - encourage OOB and ambulation - plan for flex sig by GI on wednesday - further recs per Dr. Perera surgical attending PGY2
[2018-06-18] MEDS: Enoxaparin 40 mg Syringe SC SCH (09:27)
--- NOTE | 2018-06-18 17:19 | PN ---
DATE: 06/18/2018 This note is for Dr. Boston, Dr. Mitchell covering. SUBJECTIVE: The patient is lying in bed, comfortable. She continues to pass stool and flatus through her transverse colostomy. She denies any abdominal pain, nausea, or vomiting. OBJECTIVE: VITAL SIGNS: Reveal temperature of 98.4, blood pressure 126/74, heart rate 78. HEENT: Reveal sclerae to be white. Conjunctivae pale. NECK: Supple. CHEST: Reveal lungs to be clear. HEART: Reveals regular rate and rhythm. ABDOMEN: Soft. She has a midline colostomy producing some flatus. EXTREMITIES: Show no edema. LABORATORY DATA: Reveal white blood cell count 9.8, hemoglobin 10.7. CEA is 8. Iron saturation is 4, potassium 3.4. IMPRESSION: A 58-year-old female who presents with colonic obstruction with a sigmoid mass highly suspicious for malignancy on CT scan, status post recent transverse colostomy. RECOMMENDATIONS: The patient is to have a flexible sigmoidoscopy on Wednesday morning with Dr. Boston. I have asked that she get a Fleet's enema today and tomorrow. Reagan Mitchell MD
[2018-06-19] MEDS: Enoxaparin 40 mg Syringe SC SCH (09:01)
--- NOTE | 2018-06-19 09:11 | CP.PCM.PN ---
Subjective - Date & Time of Evaluation Date of Evaluation: 06/19/18 Time of Evaluation: 09:07 - Subjective Subjective: Surgery: Dr. Perera Pt seen and examined. Resting comfortably in bed. No complaints. Objective - Vital Signs/Intake and Output Vital Signs (last 24 hours): Temp Pulse Resp BP Pulse Ox 98.1 F 75 18 120/80 100 06/19/18 06:00 06/19/18 06:00 06/19/18 06:00 06/19/18 06:00 06/19/18 06:00 Intake and Output: 06/19/18 06/19/18 06:59 18:59 Intake Total 610 Balance 610 - Medications Medications: Current Medications Acetaminophen (Tylenol 325mg Tab) 650 mg PO Q6H PRN PRN Reason: Pain, Mild (1-3) Alprazolam (Xanax) 0.25 mg PO Q6H PRN PRN Reason: Anxiety Stop: 06/23/18 20:21 Docusate Sodium (Colace) 100 mg PO BID [facility] Last Admin: 06/19/18 09:01 Dose: Not Given Enoxaparin Sodium (Lovenox) 40 mg SC DAILY [facility]; Protocol Last Admin: 06/19/18 09:01 Dose: Not Given Hydromorphone HCl (Dilaudid) 0.5 mg IVP Q4H PRN PRN Reason: Pain, moderate (4-7) Last Admin: 06/18/18 03:58 Dose: 0.5 mg Ketorolac Tromethamine (Toradol) 15 mg IVP Q6H PRN PRN Reason: Pain, moderate (4-7) Last Admin: 06/17/18 06:28 Dose: 15 mg Ondansetron HCl (Zofran Inj) 4 mg IVP Q4H PRN PRN Reason: Nausea/Vomiting Ondansetron HCl (Zofran Inj) 4 mg IVP ONCE PRN PRN Reason: Nausea/Vomiting Sodium Phosphate (Fleet Enema) 135 ml RC ONCE ONE Stop: 06/19/18 19:01 Zolpidem Tartrate (Ambien) 5 mg PO HS PRN PRN Reason: Insomnia Last Admin: 06/16/18 21:52 Dose: 5 mg - Labs Labs: 06/17/18 06:20 06/17/18 06:20 PT 13.0 SECONDS (9.4-12.5) H 06/15/18 12:30 INR 1.13 06/15/18 12:30 APTT 25.8 Seconds (25.1-36.5) 06/15/18 12:30 - Constitutional Appears: Non-toxic, No Acute Distress - Head Exam Head Exam: ATRAUMATIC, NORMOCEPHALIC - Eye Exam Eye Exam: EOMI - ENT Exam ENT Exam: Mucous Membranes Moist - Neck Exam Neck Exam: Full ROM - Respiratory Exam Respiratory Exam: NORMAL BREATHING PATTERN. absent: Accessory Muscle Use, Respiratory Distress - GI/Abdominal Exam GI & Abdominal Exam: absent: Distended, Firm, Guarding, Rigid, Soft, Tenderness, Rebound Additional comments: stoma pink and patent w. gas in bag - Extremities Exam Extremities Exam: absent: Calf Tenderness, Pedal Edema - Neurological Exam Neurological Exam: Alert, Awake, Oriented x3 Assessment and Plan - Assessment and Plan (Free Text) Assessment: 58F w. LBO, s/p transverse loop colostomy, POD#3 -Flex sigmoidoscopy tomorrow -Will continue to follow -d/w attending Ciro PGY4
--- NOTE | 2018-06-19 17:13 | PN ---
DATE: 06/19/2018 This note is for Dr. Boston, Dr. Mitchell covering. SUBJECTIVE: The patient is lying in bed comfortable. She denies any rectal bleeding, abdominal pain, nausea or vomiting. PHYSICAL EXAMINATION: VITAL SIGNS: Reveal temperature of 98.1, blood pressure 120/80, heart rate of 75. HEENT: Reveal sclerae to be white. Conjunctivae pink. NECK: Supple. CHEST: Reveals lungs to be clear. HEART: Reveals regular rate and rhythm. ABDOMEN: Soft. She has a midline colostomy producing flatus and liquid stool. EXTREMITIES: Show no edema. LABORATORY DATA: Reveal no new data. IMPRESSION: This is a 58-year-old female with an obstructing sigmoid colon lesion status post diverting transverse loop colostomy. RECOMMENDATIONS: The patient is to have a flexible sigmoidoscopy in the a.m. with Dr. Boston. Reagan Mitchell MD
[2018-06-20 07:10] LABS: BASO # 0.02 K/mm3 (0.0-2.0); BASO % 0.4 % (0.0-3.0); EOS # 0.3 (0.0-0.7); EOS % 5.6 % (1.5-5.0); GRAN # 2.87 (1.4-6.5); GRAN % 59.1 % (50.0-68.0); HEMOGLOBIN 9.5 g/dL (12.0-16.0); LYMPH # 1.3 (1.2-3.4); LYMPH % 26.5 % (22.0-35.0); MEAN CELL VOLUME 89.1 fl (80.0-105.0); MEAN CORPUSCULAR HEMOGLOBIN 28.7 pg (25.0-35.0); MEAN CORPUSCULAR HGB CONC 32.2 g/dl (31.0-37.0); MONO # 0.4 (0.1-0.6); MONO % 8.4 % (1.0-6.0); RBC 3.31 10^6/uL (3.5-6.1); RED CELL DISTRIBUTION WIDTH 13.6 % (11.5-14.5); WHITE BLOOD COUNT 4.9 10^3/uL (4.5-11.0)
--- NOTE | 2018-06-20 07:41 | CP.PCM.PN ---
Subjective - Date & Time of Evaluation Date of Evaluation: 06/20/18 Time of Evaluation: 07:37 - Subjective Subjective: Charbel Jenkins, PGY1 Surgery Progress Note for Dr. Perera Patient was seen and examined at bedside this morning. No complaints or adverse overnight events. Vital signs stable. Objective - Vital Signs/Intake and Output Vital Signs (last 24 hours): Temp Pulse Resp BP Pulse Ox 97.9 F 64 20 123/60 98 06/19/18 17:49 06/19/18 17:49 06/19/18 17:49 06/19/18 17:49 06/19/18 17:49 - Medications Medications: Current Medications Acetaminophen (Tylenol 325mg Tab) 650 mg PO Q6H PRN PRN Reason: Pain, Mild (1-3) Alprazolam (Xanax) 0.25 mg PO Q6H PRN PRN Reason: Anxiety Stop: 06/23/18 20:21 Docusate Sodium (Colace) 100 mg PO BID [facility] Last Admin: 06/19/18 17:15 Dose: Not Given Enoxaparin Sodium (Lovenox) 40 mg SC DAILY [facility]; Protocol Last Admin: 06/19/18 09:01 Dose: Not Given Hydromorphone HCl (Dilaudid) 0.5 mg IVP Q4H PRN PRN Reason: Pain, moderate (4-7) Last Admin: 06/18/18 03:58 Dose: 0.5 mg Ketorolac Tromethamine (Toradol) 15 mg IVP Q6H PRN PRN Reason: Pain, moderate (4-7) Last Admin: 06/17/18 06:28 Dose: 15 mg Ondansetron HCl (Zofran Inj) 4 mg IVP Q4H PRN PRN Reason: Nausea/Vomiting Ondansetron HCl (Zofran Inj) 4 mg IVP ONCE PRN PRN Reason: Nausea/Vomiting Zolpidem Tartrate (Ambien) 5 mg PO HS PRN PRN Reason: Insomnia Last Admin: 06/16/18 21:52 Dose: 5 mg - Labs Labs: 06/20/18 06:00 06/17/18 06:20 PT 13.0 SECONDS (9.4-12.5) H 06/15/18 12:30 INR 1.13 06/15/18 12:30 APTT 25.8 Seconds (25.1-36.5) 06/15/18 12:30 - Constitutional Appears: No Acute Distress - Head Exam Head Exam: ATRAUMATIC, NORMAL INSPECTION, NORMOCEPHALIC - Eye Exam Eye Exam: EOMI - ENT Exam ENT Exam: Mucous Membranes Moist - Respiratory Exam Respiratory Exam: Clear to Ausculation Bilateral. absent: Rales, Rhonchi, Wheezes - Cardiovascular Exam Cardiovascular Exam: RRR - GI/Abdominal Exam GI & Abdominal Exam: Soft. absent: Guarding, Rigid, Tenderness, Organomegaly, Rebound Additional comments: stoma is pink and patent with gas in ostomy bag - Extremities Exam Extremities Exam: Full ROM, Normal Capillary Refill, Normal Inspection. absent: Joint Swelling, Pedal Edema - Neurological Exam Neurological Exam: Alert, Awake, Oriented x3 - Psychiatric Exam Psychiatric exam: Normal Affect, Normal Mood - Skin Skin Exam: Dry, Intact, Normal Color, Warm Assessment and Plan - Assessment and Plan (Free Text) Assessment: 58F with LBO, s/p transverse loop colostomy, POD#4 Plan: - pending results of Flex sigmoidoscopy today - Will continue to follow as outpatient - Prescription for ostomy supplies ordered - Further recs as per Dr. Perera
[2018-06-20 07:45] LABS: ALBUMIN 3.1 g/dL (3.0-4.8); ALT/SGPT 25 U/L (7-56); AST/SGOT 23 U/L (14-36); BLOOD UREA NITROGEN 4 mg/dL (7-21); CALCIUM 8.7 mg/dL (8.4-10.5); GFR NON-AFRICAN AMERICAN > 60
[2018-06-20] MEDS ORDERED: Propofol 10 mg/ml Inj (20 ML) ONE (09:00)
--- NOTE | 2018-06-20 09:20 | PN ---
DATE: 06/17/2018 SUBJECTIVE: The patient is a 58-year-old female with essentially no past medical history, who presents to the emergency room on 06/15/2018 complaining of abdominal pain, nausea, vomiting. CAT scan revealed an obstructing lesion in the distal sigmoid colon. She underwent surgery with Dr. Perera and a diverting colonostomy was performed. However, no biopsy of the lesion was taken. The patient was seen by the front desk coordinator, Dr. Boston and she is scheduled for a sigmoidoscopy with biopsies to be done on Wednesday. When seen today, the patient is postop x1 day. She is feeling well. She has no complaints. She feels very, very hungry. Morning laboratory shows the CEA to be elevated at 8.0. White blood cell count is 9.8, hemoglobin and hematocrit are 10.7 and 33.3, platelet count is 366. Sodium is 139, potassium 3.4, blood urea nitrogen is 3, creatinine 0.5. She has a low-grade temperature of 99.3, her blood pressure is 116/73 and heart rate is 71. The patient is very hungry. She is moving her bowels. The ostomy is working well. We will allow the patient to eat today and tomorrow, Wednesday and on Wednesday, we will begin the prep for her colonoscopy/sigmoidoscopy on Wednesday. Hardy Ivey MD
[2018-06-20] MEDS ORDERED: Sodium Chloride 0.9% 1,000 ML IV SCH (09:30)
[2018-06-20] MEDS ORDERED: Potassium Chloride 40 mEq/30 ml LIQ UD PO ONE (10:00)
[2018-06-20] MEDS ORDERED: Magnesium Sulfate 2 gm/50 ml 2 GM/50 ML BAG IVPB ONE (10:01)
--- NOTE | 2018-06-20 10:11 | PN ---
DATE: 06/17/2018 This is an addendum to progress note performed by Beatriz Perales APN. This visit is for Dr. Boston, Dr. Mitchell covering. I have personally examined the patient myself and reviewed her laboratory data. She is status post transverse loop colostomy for an obstructing sigmoid lesion. I agree with Beatriz Perales' assessment and plans which include a flexible sigmoidoscopy for Wednesday morning. Reagan Mitchell MD
--- NOTE | 2018-06-20 11:25 | PN ---
DATE: 06/19/2018 SUBJECTIVE: The patient is a 58-year-old female with negative past medical history who presented to the emergency room on 06/15/2018 and was admitted with an obstructing lesion of the distal sigmoid colon. She underwent surgery with Dr. Perera and a diverting colostomy was performed. She is scheduled to go for a sigmoidoscopy with Dr. Boston tomorrow morning the 06/20/2018 for biopsy of this sigmoid lesion. Of note, the patient also had a mass noted in the liver on CAT scan. The CEA was elevated at 8.0 also. When seen, the patient is awake, alert, and oriented. She understands her medical condition. She understands she is in agreement with the flexible sigmoidoscopy in the morning. OBJECTIVE: VITAL SIGNS: Stable. Her physical exam is unchanged. LUNGS: Clear. HEART: Regular. ABDOMEN: Soft. Ostomy is functioning properly. IMPRESSION AND PLAN: The patient will be reevaluated in the morning as scheduled for flexible sigmoidoscopy and biopsy of the sigmoid lesion. Hardy Ivey MD
--- NOTE | 2018-06-20 11:59 | PN ---
DATE: 06/18/2018 DAILY PROGRESS NOTE SUBJECTIVE: The patient is a 58-year-old female with a negative past medical history, who presented to the emergency room complaining of abdominal pain, nausea and vomiting, found to have an obstructing lesion in the distal sigmoid colon. She underwent surgery with Dr. Perera and a loop colostomy was performed. The patient is scheduled to have a flexible sigmoidoscopy on Wednesday the 06/20 to date we are following the patient, she is in bed. She is awake, alert, and oriented. She is hungry. We will see the patient Wednesday and Wednesday and begin prepping for the flexible sigmoidoscopy on Wednesday. Her vital signs are stable. She voices no complaints at this time. We will continue to follow her closely. Hardy Ivey MD
[2018-06-20 16:53] VITALS: BP 107/64; PULSE 69; RESP 20; TEMP 98.7; O2SAT 97
--- NOTE | 2018-06-21 09:01 | CP.PCM.PN ---
Subjective - Date & Time of Evaluation Date of Evaluation: 06/21/18 Time of Evaluation: 08:15 - Subjective Subjective: PGY-4 GI Fellow Prog Note Pt lying in bed, watching TV when seen this AM. Denied any overt abd pain, states ostomy functioning well without obvious issues. Eager for likely DC today. 5 point ROS negative other than stated above Objective - Vital Signs/Intake and Output Vital Signs (last 24 hours): Temp Pulse Resp BP Pulse Ox 98.7 F 69 20 107/64 97 06/20/18 16:52 06/20/18 16:52 06/20/18 16:52 06/20/18 16:52 06/20/18 16:52 Intake and Output: 06/21/18 06/21/18 06:59 18:59 Intake Total 240 Balance 240 - Medications Medications: Current Medications Acetaminophen (Tylenol 325mg Tab) 650 mg PO Q6H PRN PRN Reason: Pain, Mild (1-3) Alprazolam (Xanax) 0.25 mg PO Q6H PRN PRN Reason: Anxiety Stop: 06/23/18 20:21 Docusate Sodium (Colace) 100 mg PO BID [facility] Last Admin: 06/20/18 18:39 Dose: Not Given Enoxaparin Sodium (Lovenox) 40 mg SC DAILY [facility]; Protocol Last Admin: 06/19/18 09:01 Dose: Not Given Ketorolac Tromethamine (Toradol) 15 mg IVP Q6H PRN PRN Reason: Pain, moderate (4-7) Last Admin: 06/17/18 06:28 Dose: 15 mg Ondansetron HCl (Zofran Inj) 4 mg IVP Q4H PRN PRN Reason: Nausea/Vomiting Ondansetron HCl (Zofran Inj) 4 mg IVP ONCE PRN PRN Reason: Nausea/Vomiting Zolpidem Tartrate (Ambien) 5 mg PO HS PRN PRN Reason: Insomnia Last Admin: 06/20/18 21:10 Dose: 5 mg - Labs Labs: 06/20/18 06:00 06/20/18 06:00 PT 13.0 SECONDS (9.4-12.5) H 06/15/18 12:30 INR 1.13 06/15/18 12:30 APTT 25.8 Seconds (25.1-36.5) 06/15/18 12:30 - Constitutional Appears: Well, No Acute Distress - Head Exam Head Exam: ATRAUMATIC, NORMAL INSPECTION - Eye Exam Eye Exam: EOMI. absent: Scleral icterus - ENT Exam ENT Exam: Mucous Membranes Moist. absent: Mucous Membranes Dry - Respiratory Exam Respiratory Exam: NORMAL BREATHING PATTERN. absent: Accessory Muscle Use, Respiratory Distress - GI/Abdominal Exam GI & Abdominal Exam: Distended (mildly), Soft, Normal Bowel Sounds. absent: Bruit, Firm, Guarding, Rigid, Tenderness, Mass, Organomegaly, Pulsatile Mass Additional comments: Ostomy in epigastric area with pink stoma and yellow-brown liquid output Assessment and Plan - Assessment and Plan (Free Text) Assessment: # Obstructing Sigmoid Mass: Likely malignant. Biopsied on Flex Sig on 06/20/18. # Liver mass: Seen on admission CT. Possible met? # LBO, s/p transverse loop colostomy: Due to above. Peritoneal fluid negative for malignant cells. Plan: - F/u path results - Onc and Surgery consulted - Plans for outpatient PET/CT per Onc Pt discussed with Dr. Boston; please see attestation for further recs/changes.
--- NOTE | 2018-06-21 11:30 | CON ---
DATE: 06/21/2018 This is a 58-year-old woman with rectal carcinoma presenting with an obstruction requiring an emergency colostomy. The patient underwent colonoscopy yesterday and we await the results; however, she has a 4-cm lesion in her liver. It is unclear what this is. I am going to order an MRI with and without contrast if she is still in the hospital. If she is out, we could only do this as an outpatient through a PET but if she is remaining here postop, I would like to do the MRI and if this further confirms the lesion, we may want to do a liver biopsy. Ed Aguirre MD
--- NOTE | 2018-06-21 11:35 | CON ---
DATE: 06/21/2018 ONCOLOGY CONSULTATION FOLLOWUP I spoke with the patient. She is feeling much, much better today. She is hoping to be discharged today. I am canceling the MRI of the liver. I offered her to come to the office for a followup appointment after we find the pathology back, but she said she does not want a followup appointment. She is going to talk with Dr. Ivey after she gets out of the hospital and from there she will make a decision as to where she wants to be followed up. So, I said okay, that is fine. I will not give an appointment and after she speaks with Dr. Ivey, she will then decide how she wants to proceed and I have canceled that MRI of the liver. Ed Aguirre MD
--- NOTE | 2018-06-24 13:43 | OP ---
PROCEDURE DATE: 06/16/2018 SURGEON: Brian Perera MD [employer]: and Dr. Herman. DESCRIPTION OF PROCEDURE: In the operating room, the patient was identified by name, name of procedure, laterality, and my danette. The abdomen was prepped and draped in the usual manner with the Abreu and NG tube in place. After successful timeout, the abdomen was entered through a prep field, it was properly prepped and draped. The patient had a large mass in the liver and a presumptive obstructing lesion in the sigmoid. I elected to do a transverse colostomy to avoid dissection in the pelvis. No tumor was felt in the liver or the pelvis. Through a transverse incision, the abdomen was entered. The transverse colon was freed of the omentum. It was mobilized up into the wound and a bar was placed underneath it. Two #1 Novafil on either side in mattress manner were placed. These were not tied. The bar was brought up into the wound, 3 of these were tied, one of them had to be removed because it was little bit too tight. This having been done, the bar was sutured in place. The ostomy was then matured and was decompressed removing over a liter of stool and gas. It was freely removed. The edges were trimmed down with Vicryl. Skin was closed with evelio. The patient was taken to the recovery room in good condition after the sponge and needle counts were declared as correct. Brian Perera MD
== END 2018-06-21 12:53 | disposition home health service (06) | DRG 330 ==
LOC: ED 11:29 → ERH 20:26 → 3RNO 06-16 21:10
PROVIDERS: ADMIT Internal Medicine; ATTEND Internal Medicine
PROC: 0WJP4ZZ Inspection of Gastrointestinal Tract, Percutaneous Endoscopic Approach (ICD-10-PCS; 2018-06-16)
PROC: 0D1N0Z4 Bypass Sigmoid Colon to Cutaneous, Open Approach (ICD-10-PCS; principal; 2018-06-16 07:00)
PROC: 0DBN8ZX Excision of Sigmoid Colon, Via Natural or Artificial Opening Endoscopic, Diagnostic (ICD-10-PCS; 2018-06-20)
DX: C18.7 Malignant neoplasm of sigmoid colon (principal); K63.3 Ulcer of intestine; K64.0 First degree hemorrhoids; K76.9 Liver disease, unspecified; E87.6 Hypokalemia; Z53.31 Laparoscopic surgical procedure converted to open procedure

== ENCOUNTER 2018-07-11 09:39 | Outpatient (CLI) | payer BC | END 2018-07-11 09:40 | disposition home or self-care (01) | LOC: RAD 09:39 ==